=== PATIENT | male | born 1975 | race Caucasian/White ===

== ENCOUNTER 2025-04-14 06:54 | Day surgery (SDC) | payer BC ==
[2025-04-14] MEDS ORDERED: Lactated Ringers 1,000 ML IV SCH (07:00)
[2025-04-14] MEDS ORDERED: Lactated Ringers 1,000 ML IV ONE (07:14)
[2025-04-14] MEDS ORDERED: propofoL IV ONE ×3 (08:40→08:59)
[2025-04-14 09:33] VITALS: TEMP 97.7; O2SAT 97
[2025-04-14 09:43] VITALS: BP 140/92; PULSE 78; RESP 18
--- NOTE | 2025-04-15 12:35 | OP ---
SURGERY DATE/TIME: 04/14/2025 [id number] PREOPERATIVE DIAGNOSIS: Positive Cologuard. POSTOPERATIVE DIAGNOSIS: Normal colon. PROCEDURE: Colonoscopy. SURGEON: Chacho Sood MD ANESTHESIA: MAC by Morgan Sebastian CRNA. ESTIMATED BLOOD LOSS: None. SPECIMEN: None. DESCRIPTION OF PROCEDURE AND FINDINGS: After informed written consent was obtained, the patient was taken to the endoscopy suite. He was placed in the left lateral decubitus position and anesthesia was titrated to desired level of consciousness. Digital rectal exam showed normal sphincter tone and no internal lesions. The scope was inserted into the rectum and sequentially the entire colonic mucosa was traversed. Level of cecum was reached and verified with direct visualization of the ileocecal valve. Upon withdrawal, careful mucosal inspection revealed no gross abnormalities. Prep was noted to be good. Prior to withdrawal, retroflexion showed no internal lesions. The scope was removed and the patient was transferred to the recovery room in good condition.
== END 2025-04-14 09:51 | disposition home or self-care (01) ==
LOC: SDC 06:54
PROVIDERS: ATTEND Family Medicine
DX: R19.5 Other fecal abnormalities (principal)